=== PATIENT | male | born 1995 ===

== ENCOUNTER 2018-06-29 22:10 | Emergency (ER) | payer MEDICAID, OTHER ==
[2018-06-29] MEDS ORDERED: Amoxicillin-Clav 500-125 mg Tab PO STA (23:17)
[2018-06-29] MEDS ORDERED: Amoxicillin-Clav 500-125 mg Tab PO ONE (23:20)
--- NOTE | 2018-06-29 23:34 | C.PDOC ---
History Of Present Illness 22 year old male presents to the ED c/o left ear pain for the past 2 days. Patient states today he developed subjective fever. Patient denies nausea, vomit , rash, headache, dizziness, recent travel, sick contacts. Time Seen by Provider: 06/29/18 22:39 Chief Complaint (Nursing): ENT Problem History Per: Patient History/Exam Limitations: None Onset/Duration Of Symptoms: Days (2) Current Symptoms Are (Timing): Still Present Quality (Ear): Pain W/Touch Anticoagulant/Antiplatlet Use?: No Recent Aspirin Use: No Past Medical History Reviewed: Historical Data, Nursing Documentation, Vital Signs Vital Signs: Last Vital Signs Temp 98.1 F 06/29/18 23:41 Pulse 88 06/29/18 23:41 Resp 18 06/29/18 23:41 BP 136/81 06/29/18 23:41 Pulse Ox 98 06/30/18 02:26 - Medical History PMH: No Chronic Diseases Surgical History: No Surg Hx - [facility] Procedures SUTURE OF GUM LACERATION (05/30/14) Family History: States: Unknown Family Hx - Social History Hx Tobacco Use: No Hx Alcohol Use: No Hx Substance Use: No - Immunization History Hx Tetanus Toxoid Vaccination: Yes Hx Influenza Vaccination: No Hx Pneumococcal Vaccination: No Review Of Systems Constitutional: Negative for: Fever, Chills ENT: Positive for: Ear Pain Respiratory: Negative for: Cough Neurological: Negative for: Weakness, Numbness Physical Exam - Physical Exam Appears: Non-toxic, No Acute Distress Skin: Normal Color, Warm, Dry Head: Atraumatic, Normacephalic, No Swelling Eye(s): bilateral: Normal Inspection Ear(s): Left: TM Erythema (bulging, no effusion ), Right: Normal Nose: No Discharge Oral Mucosa: Moist Throat: Normal, No Erythema, No Exudate Neck: Normal ROM, No Midline Cervical Tenderness, Supple Neurological/Psych: Oriented x3, Normal Speech Gait: Steady ED Course And Treatment O2 Sat by Pulse Oximetry: 98 (ON RA) Pulse Ox Interpretation: Normal Progress Note: Plan: - Augmentin 1 tab PO. - Motrin 600 mg PO. On reassessment, patient is resting comfortably, and is in no acute distress. Patient was instructed to follow up with physician/clinic in 1-2 days for further evaluation. Disposition Counseled Patient/Family Regarding: Diagnosis, Need For Followup - Disposition Disposition: HOME/ ROUTINE Disposition Time: 23:32 Condition: STABLE Additional Instructions: Please follow up with PMD TAKE MEDICATIONS DIRECTED RETURN TO ER IF WORSE Prescriptions: Amoxicillin/Clavulanate [Augmentin 500 MG-125 MG] 1 tab PO TID #21 tab Ibuprofen [Motrin] 600 mg PO Q6H #20 tab Instructions: Ear Infections (Otitis Media) (DC) Forms: [employer] ([place]) - Clinical Impression Clinical Impression: Otitis media - PA / SAFETY SITTER / Resident Statement MD/DO has reviewed & agrees with the documentation as recorded. - Scribe Statement The provider has reviewed the documentation as recorded by the Scribe Lonnie Carvalho All medical record entries made by the Scribe were at my direction and personally dictated by me. I have reviewed the chart and agree that the record accurately reflects my personal performance of the history, physical exam, medical decision making, and the department course for this patient. I have also personally directed, reviewed, and agree with the discharge instructions and disposition.
[2018-06-29 23:42] VITALS: BP 136/81; PULSE 88; RESP 18; TEMP 98.1
[2018-06-30 02:23] VITALS: O2SAT 98
== END 2018-06-29 23:41 | disposition home or self-care (01) ==
LOC: C.ER 22:10
DX: H66.92 Otitis media, unspecified, left ear (principal)

== ENCOUNTER 2018-11-15 23:03 | Emergency (ER) | payer OTHER ==
[2018-11-15 23:24] VITALS: RESP 20; O2SAT 100
[2018-11-15] MEDS ORDERED: Aspirin 325 mg EC Tablets PO STA (23:38)
[2018-11-16] LABS: BASO # 0.1 K/uL (0.0-0.2); BASO % 0.7 % (0.0-2.0); EOS # 0.3 K/uL (0.0-0.7); EOS % 2.9 % (0.0-4.0); HEMOGLOBIN 16.2 g/dL (12.0-18.0); LYMPH # 3.2 K/uL (1.0-4.3); LYMPH % 30.4 % (20.0-40.0); MEAN CELL VOLUME 87.9 fL (80.0-94.0); MEAN CORPUSCULAR HEMOGLOBIN 30.8 pg (27.0-31.0); MEAN CORPUSCULAR HGB CONC 35.1 g/dL (33.0-37.0); MEAN PLATELET VOLUME 8.3 fL (7.2-11.7); MONO # 0.5 K/uL (0.0-0.8); NEUT # 6.4 K/uL (1.8-7.0); NRBC % 0.1 % (0.0-2.0); RBC 5.24 Mil/uL (4.40-5.90); RED CELL DISTRIBUTION WIDTH 13.3 % (11.5-14.5); WHITE BLOOD COUNT 10.5 K/uL (4.8-10.8)
[2018-11-16 00:15] LABS: ALB/GLOB RATIO 1.4 (1.0-2.1); ALBUMIN 5.1 g/dL (3.5-5.0); ALT/SGPT 36 U/L (21-72); AST/SGOT 31 U/L (17-59); BLOOD UREA NITROGEN 16 mg/dL (9-20); CALCIUM 9.8 mg/dl (8.6-10.4); GFR NON-AFRICAN AMERICAN > 60
[2018-11-16 00:17] LABS: BARBITURATES, UR NEGATIVE (NEGATIVE); BENZODIAZEPINES, UR NEGATIVE (NEGATIVE); OPIATES, UR NEGATIVE (NEGATIVE); PHENCYCLIDINE, UR NEGATIVE (NEGATIVE)
[2018-11-16 00:29] LABS: B-TYPE NATRIURETIC PEPTIDE < 11.1 pg/mL (0-450)
--- NOTE | 2018-11-16 00:37 | C.PDOC ---
History Of Present Illness 23 year old male presents to the ED c/o SOB associated with numbness and tingling of his extremities. Patient reports symptoms started tonight. Patient denies fever, chills, headache, CP, dizziness, neck pain, dizziness, injury, fall, trauma. Time Seen by Provider: 11/15/18 23:31 Chief Complaint (Nursing): Shortness Of Breath History Per: Patient History/Exam Limitations: no limitations Onset/Duration Of Symptoms: Hrs Current Symptoms Are (Timing): Still Present Recent travel outside of the [place]: No Additional History Per: Patient Past Medical History Reviewed: Historical Data, Nursing Documentation, Vital Signs Vital Signs: Last Vital Signs Temp 98.2 F 11/15/18 23:20 Pulse 95 H 11/15/18 23:20 Resp 20 11/15/18 23:20 BP 164/92 H 11/15/18 23:20 Pulse Ox 100 11/15/18 23:20 - Medical History PMH: No Chronic Diseases Surgical History: No Surg Hx - [facility] Procedures SUTURE OF GUM LACERATION (05/30/14) Family History: States: Unknown Family Hx - Social History Hx Tobacco Use: No Hx Alcohol Use: No Hx Substance Use: No - Immunization History Hx Tetanus Toxoid Vaccination: Yes Hx Influenza Vaccination: No Hx Pneumococcal Vaccination: No Review Of Systems Constitutional: Negative for: Fever, Chills Eyes: Negative for: Vision Change Cardiovascular: Negative for: Chest Pain, Palpitations Respiratory: Positive for: Shortness of Breath. Negative for: Cough Gastrointestinal: Negative for: Nausea, Vomiting, Abdominal Pain Skin: Negative for: Rash Neurological: Negative for: Weakness, Numbness Psych: Positive for: Anxiety. Negative for: Suicidal ideation Physical Exam - Physical Exam Appears: Non-toxic, No Acute Distress, Other (anxious) Skin: Normal Color, Warm, Dry Head: Atraumatic, Normacephalic Eye(s): bilateral: Normal Inspection Neck: Normal ROM, Supple Chest: Symmetrical Cardiovascular: Rhythm Regular Respiratory: Normal Breath Sounds, No Rales, No Rhonchi, No Wheezing Gastrointestinal/Abdominal: Soft, No Tenderness, No Guarding, No Rebound Extremity: Normal ROM, No Tenderness, No Swelling Neurological/Psych: Oriented x3, Normal Speech, Normal Cognition Gait: Steady ED Course And Treatment - Laboratory Results Result Diagrams: 11/15/18 23:58 11/15/18 23:58 Lab Interpretation: Normal (bnp/trop neg.) ECG: Interpreted By Me ECG Rhythm: Sinus Rhythm ECG Interpretation: Normal Rate From EC (BPM) O2 Sat by Pulse Oximetry: 100 (ON RA) Pulse Ox Interpretation: Normal - Radiology CXR: Interpreted by Me CXR Interpretation: Yes: No Acute Disease Progress Note: asa, xanax PO Reevaluation Time: 00:35 Reassessment Condition: Improved Medical Decision Making Medical Decision Making: Plan: * CXR * EKG * Labs * Aspirin 325 mg PO * Xanax 0.25 mg PO panic attacks: episodes of anxiety, impending doom, subjective sob without resp distress, arm parasthesias and weakness/lethargy all resolved with Xanax PO occur monthly. ? related to sleep/alcohol use Educated Xanax x 4 pills Rx'd diet exercise eduated. Disposition Doctor Will See Patient In The: Office Counseled Patient/Family Regarding: Studies Performed, Diagnosis - Disposition Referrals: Alcoholics Anonymous [Outside] [facility] [Outside] [facility] [Outside] [facility] [place] [Outside] [facility] [Outside] [facility] [Outside] Disposition: HOME/ ROUTINE Disposition Time: 00:37 Condition: GOOD Additional Instructions: Evaluacion' completo cardiaco salio NORMAL ejercisio 45 minutos/luis 5 ortiz por semana baja de peso Xanax 0.25 mg 1 tableta solamente asaf necessario si tiene panico Sigue con la [facility] para evaluacion'es y medicamentos para la anxiedad. Instructions: Panic Disorder (DC) Forms: [facility] ([place]) Print Language: PERSIAN - Clinical Impression Clinical Impression: Panic anxiety syndrome - Scribe Statement The provider has reviewed the documentation as recorded by the Scribe Lonnie Carvalho All medical record entries made by the Scribe were at my direction and per sonally dictated by me. I have reviewed the chart and agree that the record accurately reflects my personal performance of the history, physical exam, medical decision making, and the department course for this patient. I have also personally directed, reviewed, and agree with the discharge instructions and disposition.
[2018-11-16 00:53] VITALS: BP 155/99; PULSE 82; TEMP 98.1
--- NOTE | 2018-11-16 08:41 | RAD ---
Date of service: 11/15/2018 HISTORY: Shortness of breath COMPARISON: No prior. TECHNIQUE: Chest PA and lateral FINDINGS: LINES AND TUBES: None. LUNG AND PLEURA: The lungs are well inflated and clear. No pleural effusion or pneumothorax. HEART AND MEDIASTINUM: The heart is not enlarged. No aortic atherosclerotic calcification present. The hilar and mediastinal contours are within normal limits. SKELETAL STRUCTURES: The bony structures are within normal limits for the patient's age. VISUALIZED UPPER ABDOMEN: Normal. OTHER FINDINGS: None. IMPRESSION: No active pulmonary disease.
--- NOTE | 2018-11-19 14:11 | CARD ---
APPROVED REPORT Date of service: 11/16/2018 EKG Measurement Heart [id number] <Conclusion> Normal sinus rhythm Normal ECG
== END 2018-11-16 00:54 | disposition home or self-care (01) ==
LOC: C.ER 23:03
DX: F41.0 Panic disorder [episodic paroxysmal anxiety] (principal)